=== PATIENT | female | born 2000 | race African-American/Black ===

== ENCOUNTER 2021-01-15 11:46 | Emergency (ER) | payer OTHER ==
[~2021-01-15] VITALS: Ht 162.6 cm; Wt 51.3 kg
[2021-01-15 11:49] VITALS: BP 114/74
--- NOTE | 2021-01-15 11:57 | NUR ---
Patient ambulated with steady gait to bed 5.
--- NOTE | 2021-01-15 12:15 | NUR ---
Note undone in EDM - 01/15/21 at 1226 by [email or web address] 20 Y/O FEMALE PRESENTS TO ED FOR VAGINAL BLEEDING THAT STARTED ON 01/03, 2 DAYS AFTER TAKING PLAN B PILL. DENIES PAIN OR CRAMPING. PT REPORTS GOING THROUGH 1 PAD A DAY/ PANTY LINER. DENIES DYSURIA. PT STATES SHE WENT TO ANOTHER ER AND HER OBGYN AND THEY SAID SHE WAS FINE, HER OB DID NOT HAVE AN ULTRASOUND APPOINTMENT UNTIL 02/05. PT DENIES N/V/SOB. PT A/O X4 WITH EVEN AND UNLABORED RESPIRATIONS. MENSTRUAL CYCLE DECEMBER 17- [facility]- [facility] RX-DENIES
--- NOTE | 2021-01-15 12:15 | NUR ---
20 Y/O FEMALE PRESENTS TO ED FOR VAGINAL BLEEDING THAT STARTED ON 01/03, AFTER TAKING PLAN B PILL ON 12/30. DENIES PAIN OR CRAMPING. PT REPORTS GOING THROUGH 1 PAD A DAY/ PANTY LINER. DENIES DYSURIA. PT STATES SHE WENT TO ANOTHER ER AND HER OBGYN AND THEY SAID SHE WAS FINE, HER OB DID NOT HAVE AN ULTRASOUND APPOINTMENT UNTIL 02/05. PT DENIES N/V/SOB. PT A/O X4 WITH EVEN AND UNLABORED RESPIRATIONS. LAST MENSTRUAL CYCLE DECEMBER 17- [facility]- [facility] RX-DENIES
--- NOTE | 2021-01-15 12:35 | NUR ---
Dr. Salazar at the bedside evaluating patient.
--- NOTE | 2021-01-15 12:36 | NUR ---
DR CHUNG AT BEDSIDE EVALUATING PT
[2021-01-15] MEDS ORDERED: MEDR10TA PO (12:43)
[2021-01-15 12:47] VITALS: BP 114/74
--- NOTE | 2021-01-15 12:47 | NUR ---
Patient discharged with v/s stable. Written and verbal after care instructions given and explained. Patient alert, oriented and verbalized understanding of instructions. Ambulatory with steady gait. All questions addressed prior to discharge. ID band removed. Patient advised to follow up with PMD. Rx of PROVERA given. Patient educated on indication of medication including possible reaction and side effects. Opportunity to ask questions provided and answered.
== END 2021-01-15 12:47 | disposition home or self-care (01) ==
LOC: MED 11:46
DX: N93.9 Abnormal uterine and vaginal bleeding, unspecified (principal)
CPT/HCPCS: 81002; 81025; 99283